=== PATIENT | female | born 1960 | race African-American/Black ===

== ENCOUNTER 2016-08-31 14:20 | Emergency (ER) | payer BC ==
[~2016-08-31 14:20] MED LIST: AMIT100 PO; AMIT25 PO; BACDS PO; BENTYL20 PO; CALCIUM PO; CALTRAT600 PO; CEPHADYN PO; COUGH DROPS3.1 MG PO; DIABET2.5 PO; DIOV160 PO; DITRO5 PO; ENABLEX7.5 PO; FLONASE NAS; GLUCOPHAGE1000 MG PO; GLUCPH PO; HCTZ25B PO; KAPIDEX60 MG PO; LOPID6 PO; LORT7 PO; LORTAB 5 PO; LORTAB10 PO; LUNESTA2 M1 OR; LUNESTA2 M1 PO; LYRICA100 MG PO; MOBIC7.5 PO; MULTIPLE VIT PO; MYRBETRIQ50 MG PO; NEXIUM40 PO; NORCO1 TA1 PO; NORCO1 TAB PO; NORV10 PO; NORV5 PO; PEP20 PO; PREM625 PO; PROTONIX PO; ULTRAM50 PO; VALTREX1 GM PO; VESICARE10 MG PO; VITAMIN B PO; VITAMIN B-121000 MC1 SL; VOLTXR100 PO; ZITH250 PO
== END 2016-08-31 14:25 | disposition home or self-care (01) ==
LOC: ER 14:20
DX: M70.41 Prepatellar bursitis, right knee (principal); I10 Essential (primary) hypertension; F17.200 Nicotine dependence, unspecified, uncomplicated; Z90.710 Acquired absence of both cervix and uterus; Z88.5 Allergy status to narcotic agent; Z79.899 Other long term (current) drug therapy
CPT/HCPCS: 73560-RT; 85379; 96372; 99284; J1885

== ENCOUNTER 2016-09-23 19:58 | Emergency (ER) | payer BC | END 2016-09-23 22:22 | disposition home or self-care (01) | LOC: ER 19:58 | DX: S16.1XXA Strain of muscle, fascia and tendon at neck level, initial encounter (principal); I10 Essential (primary) hypertension; Z88.5 Allergy status to narcotic agent; Z88.8 Allergy status to other drugs, medicaments and biological substances; Z79.899 Other long term (current) drug therapy | CPT/HCPCS: 72125; 72128; 73030-RT; 96372; 99284 ==